=== PATIENT | female | born 1945 | race African-American/Black ===

== ENCOUNTER 2018-06-06 08:58 | Outpatient (CLI) | payer MEDICARE ==
--- NOTE | 2018-06-06 12:30 | Ultrasound Report ---
ULTRASOUND PELVIC COMPLETE HISTORY: Pelvic pain, left lower quadrant pain. COMPARISON: None. TECHNIQUE: Transabdominal and transvaginal ultrasound with color doppler interrogation. FINDINGS: Uterus: Anteverted. 4.3 x 1.7 x 3.3 cm. No uterine mass. Endometrium: 4 mm. Right ovary: 1.4 x 1.2 x 1.2 cm. No focal abnormality. Left ovary: 3.6 x 3.1 x 3.6 cm. A 3.0 x 2.6 x 2.8 cm simple cyst is noted in the left adnexa. No pelvic fluid or mass is identified. Normal color doppler interrogation. IMPRESSION: Left ovarian cyst.
== END 2018-06-06 08:59 | disposition home or self-care (01) ==
LOC: US 08:58
PROVIDERS: ATTEND Obstetrics & Gynecology
DX: N83.202 Unspecified ovarian cyst, left side (principal)
CPT/HCPCS: 76856

== ENCOUNTER 2018-08-22 09:11 | Outpatient (CLI) | payer MEDICARE ==
--- NOTE | 2018-08-22 11:34 | Ultrasound Report ---
TRANSABDOMINAL PELVIC AND TRANSVAGINAL ULTRASOUND HISTORY: Follow-up left ovarian cyst. Postmenopausal.. COMPARISON: 06/06/2018 TECHNIQUE: Routine transabdominal and transvaginal pelvic ultrasound performed. FINDINGS: TRANSABDOMINAL PELVIC ULTRASOUND: Uterus: Normal size and echogenicity without uterine mass. Endometrium: 5 mm in thickness. Right Ovary: Not seen. Left Ovary: A single relatively anechoic smooth cyst. The ovary measures 3.5 x 3.0 x 3.4 cm and the c yst measures 2.6 x 2.4 x 2.8 cm. Additional findings: Transvaginal exam was performed for better delineation of the endometrium and ov crystal. TRANSVAGINAL PELVIC ULTRASOUND: Uterus: Normal size and echogenicity. No masses. Uterus measures 5.0 x 2.1 x 4.3 cm. Endometrium: Normal thickness measuring 2.0 mm. Right Ovary: Not seen Left Ovary: The left ovary contains a relatively anechoic smooth cyst. The ovary measures 3.8 x 2.7 x 3.4 cm and the cyst measures 3.3 x 2.3 x 3.0 cm. Additional findings: No free fluid. IMPRESSION 1. A slightly larger 3.3 cm left ovarian cyst. However, it has benign sonographic features. 2. Normal uterus and endometrium. 3. No right ovary identified. Signer Name: Edy Wright MD Signed: 08/22/2018 11:29 AM Workstation Name: [id number]
== END 2018-08-22 09:12 | disposition home or self-care (01) ==
LOC: US 09:11
PROVIDERS: ATTEND Obstetrics & Gynecology Gynecologic Oncology
DX: N83.202 Unspecified ovarian cyst, left side (principal)
CPT/HCPCS: 76830; 76856

== ENCOUNTER 2019-09-01 23:00 | Emergency (ER) | payer MEDICARE ==
[2019-09-02 00:21] VITALS: BP 154/85
[2019-09-02] MEDS ORDERED: BUTALB/ACETAMINOPHEN/CAFFEINE TAB PO ONE (01:53)
--- NOTE | 2019-09-02 01:55 | Emergency Department Report ---
HPI - General Chief Complaint: Headache Time Seen by Provider: 09/02/19 01:33 - [facility] HPI: Room 33 The patient is a 73-year-old female present with a chief complaint of headache. Patient states this evening around 20: 00 she developed headache in the frontal region and calvarium. Patient states she knows her blood pressure was elevated with a systolic of 170. Patient denies any preceding trauma or fever. Patient denies nausea or vomiting. Patient gives her headache a score of 6/10 ED Past Medical Hx - Past Medical History Previous Medical History?: Yes Hx Hypertension: Yes - Surgical History Past Surgical History?: No - Family History Family history: no significant - Social History Smoking Status: Never Smoker Substance Use Type: None - Medications Home Medications: Home Medications Medication Instructions Recorded Confirmed Last Taken Type Butalb/Acetamin/Caff 50-325-40 1 - 2 tab PO Q6HR PRN #10 tab 09/02/19 Unknown Rx [Fioricet 50-325-40] ED Review of Systems ROS: Stated complaint: HIGH BLOOD PRESSURE Other details as noted in HPI Constitutional: no symptoms reported Respiratory: no symptoms reported Endocrine: no symptoms reported Gastrointestinal: denies: nausea, vomiting Neurological: headache Physical Exam - Physical Exam Vital Signs: Vital Signs 09/02/19 00:18 Temperature 98.1 F Pulse Rate 82 Respiratory 18 Rate Blood Pressure 154/85 O2 Sat by Pulse 99 Oximetry Physical Exam: GENERAL: The patient is well-developed well-nourished female sitting in chair not appearing to be in acute distress HEENT: Normocephalic. Atraumatic. Extraocular motions are intact. Patient has moist mucous membranes. NECK: Supple. No meningitic signs are noted. Trachea midline CHEST/LUNGS: Clear to auscultation. There is no respiratory distress noted. HEART/CARDIOVASCULAR: Regular. There is no tachycardia. There is no gallop rub or murmur. ABDOMEN: Abdomen is soft, nontender. Patient has normal bowel sounds. There is no abdominal distention. SKIN: There is no rash. There is no edema. There is no diaphoresis. NEURO: The patient is awake, alert, and oriented. The patient is cooperative. The patient has no focal neurologic deficits. The patient has normal speech. Cranial nerves II through XII grossly intact MUSCULOSKELETAL: There is no evidence of acute injury. ED Course Vital Signs 07/19/20 00:18 Temperature 98.1 F Pulse Rate 82 Respiratory 18 Rate Blood Pressure 154/85 O2 Sat by Pulse 99 Oximetry ED Medical Decision Making - Radiology Data Radiology results: report reviewed (CT head), image reviewed (CT head) Findings [facility] [address] [place] [address] Cat Scan Report Signed Patient: CLARISSE RENE MR#: [id number] 7 : 1945 Acct:[id number] Age/Sex: 73 / F ADM Date: 09/01/19 Loc: ED Attending Dr: Ordering Physician: PATRICIA BASURTO MD Date of Service: 09/02/19 Procedure(s): CT head/brain wo con Accession Number(s): [id number] cc: PATRICIA BASURTO MD CT head without contrast INDICATION : Headache TECHNIQUE: Axial imaging performed from the skull apex through the skull base without the use of contrast. All CT examinations performed at this facility utilize dose modulation, iterative reconstruction or weight-based dosing, when appropriate, to reduce radiation dose to as low as reasonably achievable. COMPARISON: None FINDINGS: No acute intracranial hemorrhage or parenchymal abnormality. Ventricles are normal in size and appear symmetric. Soft tissues including the orbits appear normal. No acute osseous a bnormality. Sinuses and mastoid air cells are clear. IMPRESSION: No acute abnormality. Signer Name: Pablo Sutton MD Signed: 09/02/2019 2:13 AM Workstation Name: [id number] Transcribed By: BC Dictated By: Pablo Sutton MD Electronically Authenticated By: Pablo Sutton MD Signed Date/Time: 09/02/19212 DD/ 1 TD/TT: - Differential Diagnosis Headache, intracranial mass, ICH Critical care attestation.: If time is entered above; I have spent that time in minutes in the direct care of this critically ill patient, excluding procedure time. ED Disposition Clinical Impression: Headache Disposition: DC-01 TO HOME OR SELFCARE Is pt being admited?: No Does the pt Need Aspirin: No Condition: Stable Instructions: Acute Headache (ED) Additional Instructions: Return to the emergency department should you develop worsening symptoms, inability to tolerate food or liquids, high fever or any other concerns Prescriptions: Butalb/Acetamin/Caff 50-325-40 [Fioricet 50-325-40] 1 - 2 tab PO Q6HR PRN #10 tab PRN Reason: Headache Referrals: PRIMARY CAREMD [Primary Care Provider] - 3-5 Days EARLE MAI MD [Staff Physician] - 3-5 Days (Dr. Mai is a neurologist. Please follow-up with him for further evaluation) Time of Disposition: 02:52
--- NOTE | 2019-09-02 02:18 | Cat Scan Report ---
CT head without contrast INDICATION : Headache TECHNIQUE: Axial imaging performed from the skull apex through the skull base without the use of con trast. All CT examinations performed at this facility utilize dose modulation, iterative reconstruct ion or weight-based dosing, when appropriate, to reduce radiation dose to as low as reasonably achiev able. COMPARISON: None FINDINGS: No acute intracranial hemorrhage or parenchymal abnormality. Ventricles are normal in si ze and appear symmetric. Soft tissues including the orbits appear normal. No acute osseous abnorm ality. Sinuses and mastoid air cells are clear. IMPRESSION: No acute abnormality. Signer Name: Pablo Sutton MD Signed: 09/02/2019 2:13 AM Workstation Name: [id number]
== END 2019-09-02 03:03 | disposition home or self-care (01) ==
LOC: ED 23:00
DX: I10 Essential (primary) hypertension (principal)
CPT/HCPCS: 70450; 99283

== ENCOUNTER 2019-10-09 01:46 | Emergency (ER) | payer MEDICARE ==
[2019-10-09 06:50] LABS: Bilirubin,Urine NEG (Negative); Blood,Urine NEG (Negative); Color,Urine Colorless (Yellow); Protein,Urine <15 mg/dL mg/dL (Negative); Urobilinogen,Urine < 2.0 mg/dL (<2.0)
--- NOTE | 2019-10-09 06:55 | XRay Report ---
CHEST 2 VIEWS, 10/09/2019 6:33 AM INDICATION: Hypertension. Weakness. COMPARISON: Chest radiograph, 07/31/2012 FINDINGS: Support devices: None. Heart: The cardiac silhouette is normal in size. Thoracic aorta appears tortuous. Lungs/pleura: The lungs are clear of focal airspace disease or significant pleural effusion. Additional findings: No significant acute abnormality. IMPRESSION: 1. No evidence of acute cardiopulmonary process. Signer Name: Zoey Pruitt MD Signed: 10/09/2019 6:50 AM Workstation Name: [id number]
[2019-10-09 07:05] LABS: Basophils # (Auto) 0.1 K/mm3 (0.0-0.1); Basophils % (Auto) 1.2 % (0.0-1.8); Eosinophils # (Auto) 0.1 K/mm3 (0.0-0.4); Eosinophils % (Auto) 1.1 % (0.0-4.3); Hematocrit 35.7 % (30.3-42.9); Hemoglobin 12.5 gm/dl (10.1-14.3); Lymphocytes # (Auto) 1.8 K/mm3 (1.2-5.4); Lymphocytes % (Auto) 37.1 % (13.4-35.0); Mean Corpuscular HGB Conc 35 % (30-34); Mean Corpuscular Volume 97 fl (79-97); Monocytes # (Auto) 0.4 K/mm3 (0.0-0.8); Monocytes % (Auto) 8.3 % (0.0-7.3); Platelet Count 287 K/mm3 (140-440); Red Cell Distribution Width 12.2 % (13.2-15.2)
--- NOTE | 2019-10-09 07:13 | Emergency Department Report ---
Blank Doc - Documentation Documentation: 74-year-old female with primary history of hypertension presents emergency dep artment complaining of hypertension chest pain shortness of breath and weakness for an unknown amount of days. Plan is to evaluate patient with an EKG chest x-ray and cardiac labs is a blood pressure is in relatively normal range.
[2019-10-09 07:26] LABS: Alanine Aminotransferase 18 units/L (7-56); Albumin 4.9 g/dL (3.9-5); Blood Urea Nitrogen 11 mg/dL (7-17); Calcium 10.3 mg/dL (8.4-10.2); Hemolysis Index 7
[2019-10-09 07:39] LABS: BUN/Creatinine Ratio 16
--- NOTE | 2019-10-09 08:13 | Emergency Department Report ---
ED General Adult HPI - General Chief complaint: Weakness Stated complaint: HBP/WEAKNESS Time Seen by Provider: 10/09/19 07:36 Source: patient, family Mode of arrival: Ambulatory Limitations: Language Barrier - History of Present Illness Initial comments: This is a 74-year-old female who takes hydroxychloroquine for lupus. I have obtained a history from a [place] disability insurance claim examiner. Patient presents with a log sheet of her blood pressure. She took her blood pressure some 5 times last night. She decided her blood pressure was high. However all the documented readings are reasonably within normal range. Apparently she became anxious and had some difficulty in breathing which did not persist for more than seconds to minutes. She presented here with her for medical evaluation today. She has had no chest pain whatsoever despite the medical screening note to the contrary. She is not symptomatic at this time. She is fully ambulatory about the emergency department without any distress whatsoever. -: Gradual Associated Symptoms: denies other symptoms - Related Data Previous Rx's Medication Instructions Recorded Last Taken Type Butalb/Acetamin/Caff 50-325-40 1 - 2 tab PO Q6HR PRN #10 tab 09/02/19 Unknown Rx [Fioricet 50-325-40] Nitrofurantoin Kings/M-Cryst 100 mg PO Q12HR #14 capsule 10/09/19 Unknown Rx [Macrobid CAP] Allergies Allergy/AdvReac Type Severity Reaction Status Date / Time No Known Allergies Allergy Unverified 08/22/18 09:12 ED Review of Systems ROS: Stated complaint: HBP/WEAKNESS Other details as noted in HPI Constitutional: denies: chills, fever Eyes: denies: eye pain, eye discharge, vision change ENT: denies: ear pain, throat pain Respiratory: shortness of breath. denies: cough, wheezing Cardiovascular: denies: chest pain, palpitations Endocrine: no symptoms reported Gastrointestinal: denies: abdominal pain, nausea, diarrhea Genitourinary: denies: urgency, dysuria, discharge Musculoskeletal: denies: back pain, joint swelling, arthralgia Skin: denies: rash, lesions Neurological: denies: headache, weakness, paresthesias Psychiatric: anxiety. denies: depression Hematological/Lymphatic: denies: easy bleeding, easy bruising ED Past Medical Hx - Past Medical History Previous Medical History?: Yes Hx Hypertension: Yes Additional medical history: Lupus - Social History Smoking Status: Never Smoker - Medications Home Medications: Home Medications Medication Instructions Recorded Confirmed Last Taken Type Butalb/Acetamin/Caff 50-325-40 1 - 2 tab PO Q6HR PRN #10 tab 09/02/19 Unknown Rx [Fioricet 50-325-40] Nitrofurantoin Kings/M-Cryst 100 mg PO Q12HR #14 capsule 10/09/19 Unknown Rx [Macrobid CAP] ED Physical Exam - General Limitations: Language Barrier General appearance: alert, in no apparent distress - Head Head exam: Present: atraumatic, normocephalic - Eye Eye exam: Present: normal appearance. Absent: scleral icterus - ENT ENT exam: Present: mucous membranes moist - Neck Neck exam: Present: normal inspection - Respiratory Respiratory exam: Present: normal lung sounds bilaterally. Absent: respiratory distress - Cardiovascular Cardiovascular Exam: Present: regular rate, normal rhythm. Absent: systolic murmur, diastolic murmur, rubs, gallop - GI/Abdominal GI/Abdominal exam: Present: soft, normal bowel sounds. Absent: distended, tenderness, guarding - Extremities Exam Extremities exam: Present: normal inspection. Absent: pedal edema, joint swelling, calf tenderness - Back Exam Back exam: Present: normal inspection - Neurological Exam Neurological exam: Present: alert, oriented X3, CN II-XII intact, normal gait. Absent: motor sensory deficit - Psychiatric Psychiatric exam: Present: normal affect, normal mood - Skin Skin exam: Present: warm, dry, intact, normal color. Absent: rash ED Course Vital Signs 10/09/19 03:46 Temperature 97.7 F Pulse Rate 84 Respiratory 16 Rate Blood Pressure 144/88 O2 Sat by Pulse 99 Oximetry ED Medical Decision Making - Lab Data Result diagrams: 10/09/19 06:34 10/09/19 06:34 Laboratory Results - last 24 hr 10/09/19 10/09/19 10/09/19 06:19 06:34 06:34 WBC 4.9 RBC 3.70 Hgb 12.5 Hct 35.7 MCV 97 MCH 34 H MCHC 35 H RDW 12.2 L Plt Count 287 Lymph % (Auto) 37.1 H Kings % (Auto) 8.3 H Eos % (Auto) 1.1 Baso % (Auto) 1.2 Lymph # 1.8 Kings # 0.4 Eos # 0.1 Baso # 0.1 Seg Neutrophils % 52.3 Seg Neutrophils # 2.6 Sodium 136 L Potassium 5.0 Chloride 98.7 Carbon Dioxide 25 Anion Gap 17 BUN 11 Creatinine 0.7 Estimated GFR > 60 BUN/Creatinine Ratio 16 Glucose 109 H Calcium 10.3 H Total Bilirubin 0.50 AST 24 ALT 18 Alkaline Phosphatase 113 Troponin T Total Protein 7.5 Albumin 4.9 Albumin/Globulin Ratio 1.9 Lipase 69 H Urine Color Colorless Urine Turbidity Clear Urine pH 7.0 Ur Specific [place] 1.004 Urine Protein <15 mg/dl Urine Glucose (UA) Neg Urine Ketones Neg Urine Blood Neg Urine Nitrite Neg Urine Bilirubin Neg Urine Urobilinogen < 2.0 Ur Leukocyte Esterase Lg Urine WBC (Auto) 5.0 Urine RBC (Auto) 1.0 U Epithel Cells (Auto) < 1.0 10/09/19 07:26 WBC RBC Hgb Hct MCV MCH MCHC RDW Plt Count Lymph % (Auto) Kings % (Auto) Eos % (Auto) Baso % (Auto) Lymph # Kings # Eos # Baso # Seg Neutrophils % Seg Neutrophils # Sodium Potassium Chloride Carbon Dioxide Anion Gap BUN Creatinine Estimated GFR BUN/Creatinine Ratio Glucose Calcium Total Bilirubin AST ALT Alkaline Phosphatase Troponin T < 0.010 Total Protein Albumin Albumin/Globulin Ratio Lipase Urine Color Urine Turbidity Urine pH Ur Specific [place] Urine Protein Urine Glucose (UA) Urine Ketones Urine Blood Urine Nitrite Urine Bilirubin Urine Urobilinogen Ur Leukocyte Esterase Urine WBC (Auto) Urine RBC (Auto) U Epithel Cells (Auto) - EKG Data -: EKG Interpreted by [place] EKG shows normal: sinus rhythm, axis, intervals, QRS complexes, ST-T waves Rate: normal - EKG Data Interpretation: no acute changes - Medical Decision Making Patient's medical screening does not suggest an emergency medical condition. The urine does suggest a UTI. She will be given a prescription for Macrobid and follow-up instructions on a urine culture. Critical care attestation.: If time is entered above; I have spent that time in minutes in the direct care of this critically ill patient, excluding procedure time. ED Disposition Clinical Impression: Anxiety Dyspnea Qualifiers: Dyspnea type: unspecified Qualified Code(s): R06.00 - Dyspnea, unspecified UTI (urinary tract infection) Qualifiers: Urinary tract infection type: site unspecified Hematuria presence: with hematuria Qualified Code(s): N39.0 - Urinary tract infection, site not specified; R31.9 - Hematuria, unspecified Disposition: DC-01 TO HOME OR SELFCARE Is pt being admited?: No Does the pt Need Aspirin: No Condition: Stable Instructions: Dyspnea (ED), Anxiety (ED), Urinary Tract Infection in Women (ED) Additional Instructions: Follow-up with your family physician. Rx as directed. Return any acute change or worsening symptoms. Prescriptions: Nitrofurantoin Kings/M-Cryst [Macrobid CAP] 100 mg PO Q12HR #14 capsule Referrals: PRIMARY CARE, [Primary Care Provider] - 3-5 Days Time of Disposition: 08:12
[2019-10-09 08:44] VITALS: BP 136/81
== END 2019-10-09 08:43 | disposition home or self-care (01) ==
LOC: ED 01:46
DX: F41.9 Anxiety disorder, unspecified (principal); R06.00 Dyspnea, unspecified; N39.0 Urinary tract infection, site not specified; Z79.899 Other long term (current) drug therapy
CPT/HCPCS: 36415; 71046; 80053; 81001; 83690; 84484; 85025; 87086; 93005

== ENCOUNTER 2019-11-23 20:39 | Emergency (ER) | payer MEDICARE ==
[2019-11-23] MEDS ORDERED: IBUPROFEN 400 MG TAB PO ONE (21:54)
[2019-11-23] MEDS ORDERED: MORPHINE 2 MG/1 ML INJ IV ONE (21:54)
[2019-11-23] MEDS ORDERED: ONDANSETRON 4 MG/2 ML INJ IV ONE (21:54)
--- NOTE | 2019-11-23 21:58 | XRay Report ---
LEFT FOREARM 4 VIEW(S) INDICATION / CLINICAL INFORMATION: left forearm injury COMPARISON: None available. FINDINGS: There are comminuted, mildly displaced fractures of the distal radius and ulna. There is dorsal angul ation of the distal radius fracture and ulnar angulation of the distal ulnar fracture. The carpals ma intain normal anatomic alignment with the distal radius without dislocation. Signer Name: Napoleon Norman MD Signed: 11/23/2019 9:53 PM Workstation Name: [id number]
[2019-11-23] MEDS ORDERED: LIDOCAINE (1%) 10 MG/1 ML VIAL 20 ML MDV INFILTRATI ONE (21:59)
--- NOTE | 2019-11-23 22:59 | Cat Scan Report ---
CT HEAD WITHOUT CONTRAST INDICATION / CLINICAL INFORMATION: head injury. TECHNIQUE: All CT scans at this location are performed using CT dose reduction for ALARA by means of automated e xposure control. COMPARISON: Head CT 09/02/2019 FINDINGS: HEMORRHAGE: No evidence of intracranial hemorrhage or extra-axial fluid collection. EXTRA-AXIAL SPACES: Cortical sulci, sylvian fissures and basilar cisterns have an unremarkable appear ance. VENTRICULAR SYSTEM: The ventricular system is of normal size and configuration given the patient's ag e of 74 years.. CEREBRAL PARENCHYMA: No areas of abnormal brain parenchymal attenuation are identified. There is no i ndication of recent infarction. MIDLINE SHIFT OR HERNIATION: There is no mass effect. CEREBELLUM / BRAINSTEM: Brainstem and cerebellum have an unremarkable appearance. MIDLINE STRUCTURES:No abnormalities of the pituitary gland or pineal region are identified. INTRACRANIAL VESSELS:No abnormalities are identified on this noncontrast head CT. ORBITS: Status post bilateral cataract surgery. The orbits have an otherwise unremarkable appearance. SOFT TISSUES of HEAD: No significant abnormality. CALVARIUM: Evaluation of bone windows reveals no abnormalities. PARANASAL SINUSES / MASTOID AIR CELLS: Paranasal sinuses are free from inflammatory mucosal disease. Mastoid air cells are normally pneumatized. ADDITIONAL FINDINGS: None. IMPRESSION: 1. No acute intracranial abnormality. No significant interval change in comparison to head CT 09/02/19 20. Signer Name: Martell Coleman MD Signed: 11/23/2019 10:54 PM Workstation Name: [id number]
--- NOTE | 2019-11-23 23:06 | Cat Scan Report ---
CT CERVICAL SPINE WITHOUT CONTRAST INDICATION / CLINICAL INFORMATION: Trauma. Patient fell sustaining neck injury. Neck pain. TECHNIQUE: Axial CT images were obtained through the cervical spine. Sagittal and coronal reformatted images wer e produced. All CT scans at this location are performed using CT dose reduction for ALARA by means of automated exposure control. COMPARISON: None available. FINDINGS: ALIGNMENT: Patient's head is tilted towards the left at the time of this study. There is no additiona l abnormalities of alignment. There is no evidence of traumatic subluxation. VERTEBRAE: No indication of fracture. DISC SPACES: Loss of disc height is observed at the C5-6 level. Disc height is normally maintained el sewhere. DEGENERATIVE CHANGES: Right worse than left facet arthropathy is present at the C5-6 level. Right wor se than left uncovertebral arthritic changes are also observed at this level. This is associated with moderate right-sided foraminal stenosis. Central spinal canal and neuroforamina are otherwise adequa tely maintained. CRANIOCERVICAL JUNCTION:No significant abnormality. SPINAL CANAL: Central spinal canal is adequately maintained throughout. PARASPINAL SOFT TISSUES: No significant abnormality. ADDITIONAL FINDINGS: None. LUNG APICES: No significant abnormality of visualized lungs. IMPRESSION: 1. No indication of fracture or traumatic subluxation. 2. 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 Signer Name: Martell Coleman MD Signed: 11/23/2019 11:01 PM Workstation Name: [id number]
--- NOTE | 2019-11-24 00:05 | Emergency Department Report ---
ED Fall HPI - General Chief Complaint: Fall Stated Complaint: LT WRIST INJURY/FALL Source: patient, family Mode of arrival: Ambulatory - History of Present Illness Initial Comments: Per family, patient is a 74-year-old [place]ian female with a history of hypertension, GERD and SLE who presents to the ED with complaint of acute onset severe left wrist pain and swelling with deformity, left elbow and left forearm pain, as well as left parietal scalp pain with headache after she slipped on a wet bathtub and fell down landing on her left wrist and hitting her head against the bathtub about 2 hours ago. Family states that the patient did not lose any consciousness but has been complaining of severe left wrist, left forearm and left elbow pain as well as headache since the incident occurred. Family states that the patient is unable to perform any active range of motion with the left arm because of worsening left wrist pain and swelling. Family also states that the patient has not had any loss of consciousness, dizziness, lightheadedness, chest pain, shortness of breath, nausea, vomiting, change in vision, back pain, hip pain, abdominal pain, or numbness and tingling or weakness of upper and lower extremities bilaterally. MD Complaint: fall, other (left wrist pain, swelling and deformity; headache) -: Sudden, hour(s) (2) Fall From: standing, other (in the bathtub) When Fall Occurred: 1-3 hours [employer] Fall Witnessed: yes, by family Place Fall Occurred: home Loss of Consciousness: none Prolonged Down Time?: no Symptoms Prior to Fall: none Location: head, other (left wrist and elbow ) Location - Extremities: Left: Elbow (pain), Forearm (pain), Hand (pain and swelling) Severity: severe Severity scale (0 -10): 8 Quality: sharp, aching Context: tripped/slipped Associated Symptoms: denies, neck pain. denies: headache, numbness, weakness, chest paint, shortness of breath, abdominal pain, hematuria, unable to walk, lightheaded, vertigo, confusion, other - Related Data Previous Rx's Medication Instructions Recorded Last Taken Type Butalb/Acetamin/Caff 50-325-40 1 - 2 tab PO Q6HR PRN #10 tab 09/02/19 Unknown Rx [Fioricet 50-325-40] Nitrofurantoin Nome/M-Cryst 100 mg PO Q12HR #14 capsule 08/25/20 Unknown Rx [Macrobid CAP] HYDROcodone/APAP 5-325 [Dulce 1 each PO Q6HR PRN #12 tablet 11/24/19 Unknown Rx 5/325] Ibuprofen [Motrin] 400 mg PO Q8H PRN #30 tablet 11/24/19 Unknown Rx Allergies Allergy/AdvReac Type Severity Reaction Status Date / Time No Known Allergies Allergy Unverified 08/22/18 09:12 ED Review of Systems ROS: Stated complaint: LT WRIST INJURY/FALL Other details as noted in HPI Constitutional: denies: chills, fever Eyes: denies: eye pain, eye discharge, vision change ENT: denies: ear pain, throat pain Respiratory: denies: cough, shortness of breath, wheezing Cardiovascular: denies: chest pain, palpitations Endocrine: no symptoms reported Gastrointestinal: denies: abdominal pain, nausea, diarrhea Genitourinary: denies: urgency, dysuria, discharge Musculoskeletal: joint swelling (Left wrist swelling and deformity), arthralgia (Left wrist pain, swelling and deformity; left forearm and elbow pain). denies: back pain Skin: denies: rash, lesions Neurological: headache. denies: weakness, paresthesias Psychiatric: denies: anxiety, depression Hematological/Lymphatic: denies: easy bleeding, easy bruising ED Past Medical Hx - Past Medical History Previous Medical History?: Yes Hx Hypertension: Yes Hx GERD: Yes Additional medical history: Lupus - Surgical History Past Surgical History?: Yes Additional Surgical History: Ovaries removed - Social History Smoking Status: Never Smoker Substance Use Type: None - Medications Home Medications: Home Medications Medication Instructions Recorded Confirmed Last Taken Type Butalb/Acetamin/Caff 50-325-40 1 - 2 tab PO Q6HR PRN #10 tab 09/02/19 Unknown Rx [Fioricet 50-325-40] Nitrofurantoin Nome/M-Cryst 100 mg PO Q12HR #14 capsule 10/09/19 Unknown Rx [Macrobid CAP] HYDROcodone/APAP 5-325 [Dulce 1 each PO Q6HR PRN #12 tablet 11/24/19 Unknown Rx 5/325] Ibuprofen [Motrin] 400 mg PO Q8H PRN #30 tablet 11/24/19 Unknown Rx ED Physical Exam - General Limitations: Language Barrier General appearance: alert, in no apparent distress - Head Head exam: Present: other (Palpable left parietal scalp localized tenderness with mild swelling) - Eye Eye exam: Present: normal appearance, PERRL, EOMI Pupils: Present: normal accommodation - ENT ENT exam: Present: normal exam, normal orophraynx, mucous membranes moist, TM's normal bilaterally, normal external ear exam - Neck Neck exam: Present: normal inspection, tenderness (Palpable mild cervical paraspinal musculoskeletal tenderness), full ROM. Absent: meningismus, thyr omegaly - Respiratory Respiratory exam: Present: normal lung sounds bilaterally. Absent: respiratory distress, wheezes, rales, stridor, chest wall tenderness, accessory muscle use, decreased breath sounds, prolonged expiratory - Cardiovascular Cardiovascular Exam: Present: regular rate, normal rhythm. Absent: normal heart sounds, systolic murmur, diastolic murmur, rubs, gallop - GI/Abdominal GI/Abdominal exam: Present: soft, normal bowel sounds. Absent: distended, tenderness, guarding, hyperactive bowel sounds, hypoactive bowel sounds, organomegaly, mass - Extremities Exam Extremities exam: Present: normal inspection, tenderness (Palpable severe left wrist tenderness with swelling and moderate deformity and limited range of motion due to pain), normal capillary refill, joint swelling (Left wrist swelling), other (Palpable diffuse left forearm and elbow tenderness). Absent: full ROM (Limited range of motion of left wrist due to severe pain) - Back Exam Back exam: Present: normal inspection, full ROM. Absent: tenderness, CVA tenderness (R), CVA tenderness (L), muscle spasm, paraspinal tenderness, vertebral tenderness - Neurological Exam Neurological exam: Present: alert, oriented X3, CN II-XII intact, normal gait, reflexes normal - Psychiatric Psychiatric exam: Present: normal affect, normal mood - Skin Skin exam: Present: warm, dry, intact, normal color. Absent: rash ED Course Vital Signs 11/23/19 11/24/19 20:50 01:06 Temperature 98.5 F 98.3 F Pulse Rate 89 76 Respiratory 18 18 Rate Blood Pressure 140/82 Blood Pressure 125/77 [Right] O2 Sat by Pulse 99 98 Oximetry - Orthopedic Fracture Reduction Fracture #1 Consent Obtained: verbal consent, emergent situation Time Out Performed: Yes Side: left Fracture Reduction Location: radius, ulna Analgesia: hematoma block Technique: direct manipulation, traction/counter-traction Post Reduction X-rays Demonstrate: acceptable reduction Post-Reduction Neuro Exam: intact Post-Reduction Vascular Exam: intact Splint Applied: Yes (sugartong splint) Patient Tolerated Procedure: well Additional Comments: Patient referred to the Orthopedic Surgeon station installation supervisor Dr. Timoteo Bahena for follow up in 2 days. Family at bedside to contact Dr. Mahmood's office to schedule a follow up appointment ED Medical Decision Making - Radiology Data Radiology results: report reviewed, image reviewed Findings [facility] [address] [place] [address] XRay Report Signed Patient: CLARISSE RENE MR#: [id number] 7 : 1945 Acct:[id number] Age/Sex: 74 / F ADM Date: 11/23/19 Loc: ED Attending Dr: Ordering Physician: CHARLEY LOCKWOOD MD Date of Service: 11/23/19 Procedure(s): XR forearm LT Accession Number(s): [id number] cc: CHARLEY LOCKWOOD MD Fluoro Time In Minutes: LEFT FOREARM 4 VIEW(S) INDICATION / CLINICAL INFORMATION: left forearm injury COMPARISON: None available. FINDINGS: There are comminuted, mildly displaced fractures of the distal radius and ulna. There is dorsal angulation of the distal radius fracture and ulnar angulation of the distal ulnar fracture. The carpals maintain normal anatomic alignment with the distal radius without dislocation. Signer Name: Jody Vega MD Signed: 11/23/2019 9:53 PM Workstation Name: [id number] Transcribed By: SS Dictated By: JODY VEGA Electronically Authenticated By: JODY VEGA Signed Date/Time: 11/23/192152 DD/ 48 TD/TT: Findings [facility] [address] [place] [address] Cat Scan Report Signed Patient: CLARISSE RENE MR#: [id number] 7 : 1945 Acct:[id number] Age/Sex: 74 / F ADM Date: 11/23/19 Loc: ED Attending Dr: Ordering Physician: FIDE SORENSEN Date of Service: 11/23/19 Procedure(s): CT head/brain wo con Accession Number(s): [id number] cc: FIDE SORENSEN CT HEAD WITHOUT CONTRAST INDICATION / CLINICAL INFORMATION: head injury. TECHNIQUE: All CT scans at this location are performed using CT dose reduction for ALARA by means of automated exposure control. COMPARISON: Head CT 09/02/2019 FINDINGS: HEMORRHAGE: No evidence of intracranial hemorrhage or extra-axial fluid collection. EXTRA-AXIAL SPACES: Cortical sulci, sylvian fissures and basilar cisterns have an unremarkable appearance. VENTRICULAR SYSTEM: The ventricular system is of normal size and configuration given the patient's age of 74 years.. CEREBRAL PARENCHYMA: No areas of abnormal brain parenchymal attenuation are identified. There is no indication of recent infarction. MIDLINE SHIFT OR HERNIATION: There is no mass effect. CEREBELLUM / BRAINSTEM: Brainstem and cerebellum have an unremarkable appearance. MIDLINE STRUCTURES:No abnormalities of the pituitary gland or pineal region are identified. INTRACRANIAL VESSELS:No abnormalities are identified on this noncontrast head CT. ORBITS: Status post bilateral cataract surgery. The orbits have an otherwise unremarkable appearance. SOFT TISSUES of HEAD: No significant abnormality. CALVARIUM: Evaluation of bone windows reveals no abnormalities. PARANASAL SINUSES / MASTOID AIR CELLS: Paranasal sinuses are free from inflammatory mucosal disease. Mastoid air cells are normally pneumatized. ADDITIONAL FINDINGS: None. IMPRESSION: 1. No acute intracranial abnormality. No significant interval change in comparison to head CT 09/02/2019. Signer Name: Martell Coleman MD Signed: 11/23/2019 10:54 PM Workstation Name: [id number] Transcribed By: Dictated By: Martell Coleman MD Electronically Authenticated By: Martell Coleman MD Signed Date/Time: 11/23/192253 DD/ 50 TD/TT: Findings [facility] [address] [place] [address] Cat Scan Report Signed Patient: CLARISSE RENE MR#: [id number] 7 : 1945 Acct:[id number] Age/Sex: 74 / F ADM Date: 11/23/19 Loc: ED Attending Dr: Ordering Physician: FIDE SORENSEN Date of Service: 11/23/19 Procedure(s): CT cervical spine wo con Accession Number(s): [id number] cc: FIDE SORENSEN CT CERVICAL SPINE WITHOUT CONTRAST INDICATION / CLINICAL INFORMATION: Trauma. Patient fell sustaining neck injury. Neck pain. TECHNIQUE: Axial CT images were obtained through the cervical spine. Sagittal and coronal reformatted images were produced. All CT scans at this location are performed using CT dose reduction for ALARA by means of automated exposure control. COMPARISON: None available. FINDINGS: ALIGNMENT: Patient's head is tilted towards the left at the time of this study. There is no additional abnormalities of alignment. There is no evidence of traumatic subluxation. VERTEBRAE: No indication of fracture. DISC SPACES: Loss of disc height is observed at the C5-6 level. Disc height is normally maintained elsewhere. DEGENERATIVE CHANGES: Right worse than left facet arthropathy is present at the C5-6 level. Right worse than left uncovertebral arthritic changes are also observed at this level. This is associated with moderate right-sided foraminal stenosis. Central spinal canal and neuroforamina are otherwise adequately maintained. CRANIOCERVICAL JUNCTION:No significant abnormality. SPINAL CANAL: Central spinal canal is adequately maintained throughout. PARASPINAL SOFT TISSUES: No significant abnormality. ADDITIONAL FINDINGS: None. LUNG APICES: No significant abnormality of visualized lungs. IMPRESSION: 1. No indication of fracture or traumatic subluxation. 2. 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 Signer Name: Martell Coleman MD Signed: 11/23/2019 11:01 PM Workstation Name: [id number] Transcribed By: Dictated By: Martell Coleman MD Electronically Authenticated By: Martell Coleman MD Signed Date/Time: 11/23/192300 DD/ 53 TD/TT: Findings [facility] [address] [place] [address] XRay Report Signed Patient: CLARISSE RENE MR#: [id number] 7 : 1945 Acct:[id number] Age/Sex: 74 / F ADM Date: 11/23/19 Loc: ED Attending Dr: Ordering Physician: FIDE SORENSEN Date of Service: 11/23/19 Procedure(s): XR wrist 2V LT Accession Number(s): [id number] cc: FIDE SORENSEN Fluoro Time In Minutes: LEFT WRIST 2 VIEWS INDICATION: Fracture: post-reduction. COMPARISON: One day prior. FINDINGS: Alignment at the distal radius and distal ulna fractures has improved. There is persistent dorsal angulation of the distal radial fracture fragment. Dorsally displaced distal ulnar fracture fragment is again noted. IMPRESSION: 1. Post reduction findings as above. Signer Name: Markus Gómez MD Signed: 11/24/2019 1:40 AM Workstation Name: [id number] Transcribed By: SW Dictated By: Markus Gómez MD Electronically Authenticated By: Markus Gómez MD Signed Date/Time: 11/24/19139 DD/ 8 TD/TT: - Medical Decision Making This is a 74-year-old [place]ian female with a history of hypertension, GERD and SLE who presents to the ED with complaint of acute onset severe left wrist pain and swelling with deformity, left elbow and left forearm pain, as well as left parietal scalp pain with headache after she slipped on a wet bathtub and fell down landing on her left wrist and hitting her head against the bathtub about 2 hours ago. Family states that the patient did not lose any consciousness but has been complaining of severe left wrist, left forearm and le ft elbow pain as well as headache since the incident occurred. Family states that the patient is unable to perform any active range of motion with the left arm because of worsening left wrist pain and swelling. In the ED, patient is alert and oriented x3 and is not in distress but appears to be in pain. Patient was treated for pain in the ED with morphine and ibuprofen. Left forearm x-ray showed comminuted, mildly displaced fractures of the distal radius and ulna. There is dorsal angulation of the distal radius fracture and ulnar angulation of the distal ulnar fracture. The carpals maintain normal anatomic alignment with the distal radius without dislocation. The head CT scan without contrast showed no acute intracranial abnormalities or hemorrhage. The C-spine CT scan without contrast showed no acute fractures or subluxation but moderate degenerative disc disease. The left wrist fracture was manually reduced in the ED following a hematoma block and the patient tolerated the procedure well. The post reduction x-ray showed a tolerable anatomical alignment of the joint. The left wrist and forearm were splinted with sugar tong splint and the post reduction and splint evaluation showed normal neurovascular functions of the left wrist and left hand. Patient was discharged home on pain medications and was given a referral to the orthopedic surgeon station installation supervisor Dr. Timoteo Bahena for follow-up. The family at bedside were advised to contact Dr. Mahmood's office first thing in the morning on Tuesday, November 26, 2019 to schedule a follow-up appointment. Family was also advised of the patient return to the ED immediately if symptoms get worse. - Differential Diagnosis Wrist fracture; forearm fracture; elbow fracture; forearm contusion; Critical care attestation.: If time is entered above; I have spent that time in minutes in the direct care of this critically ill patient, excluding procedure time. ED Disposition Clinical Impression: Contusion of left forearm, initial encounter Traumatic closed displaced fracture of distal end of radius and ulna Qualifiers: Encounter type: initial encounter Laterality: left Qualified Code(s): S52.502A - Unspecified fracture of the lower end of left radius, initial encounter for closed fracture Disposition: TO HOME OR SELFCARE Is pt being admited?: No Does the pt Need Aspirin: No Condition: Stable Instructions: Arm Fracture in Adults (ED), Wrist Fracture in Adults (ED) Additional Instructions: Left wrist x-ray shows a displaced fracture of distal left radius and ulna bones. The Head CT scan without contrast showed no acute abnormalities or intracranial bleeding. Therefore take medication as needed for pain, follow up with Dr. Timoteo Bahena, the Orthopedic Surgeon as advised. Contact Dr. Mahmood's office on Tuesday November 26, 2019 to schedule a follow up appointment. Return to the ED immediately if symptoms get worse. Prescriptions: Ibuprofen [Motrin] 400 mg PO Q8H PRN #30 tablet PRN Reason: Pain , Severe (7-10) HYDROcodone/APAP 5-325 [Dulce 5/325] 1 each PO Q6HR PRN #12 tablet PRN Reason: Pain Referrals: FLY MAHMOOD MD [Staff Physician] - 2-3 Days (CONTACT DR. MAHMOOD'S OFFICE ON Tuesday11/26/2019 TO SCHEDULE A FOLLOW UP APPOINTMENT) Time of Disposition: 00:18 Print Language: KISWAHILI
[2019-11-24] MEDS ORDERED: ACETAMINOPHEN W/CODEINE 300-30 MG TAB PO ONE (00:44)
[2019-11-24] MEDS ORDERED: ONDANSETRON 4 MG ODT TAB PO ONE (00:44)
[2019-11-24 01:07] VITALS: BP 125/77
--- NOTE | 2019-11-24 01:45 | XRay Report ---
LEFT WRIST 2 VIEWS INDICATION: Fracture: post-reduction. COMPARISON: One day prior. FINDINGS: Alignment at the distal radius and distal ulna fractures has improved. There is persistent dorsal ang ulation of the distal radial fracture fragment. Dorsally displaced distal ulnar fracture fragment is again noted. IMPRESSION: 1. Post reduction findings as above. Signer Name: Markus Gómez MD Signed: 11/24/2019 1:40 AM Workstation Name: [id number]
== END 2019-11-24 01:06 | disposition home or self-care (01) ==
LOC: ED 20:39
DX: S52.502A Unspecified fracture of the lower end of left radius, initial encounter for closed fracture (principal); S50.12XA Contusion of left forearm, initial encounter; I10 Essential (primary) hypertension; K21.9 Gastro-esophageal reflux disease without esophagitis; Z79.899 Other long term (current) drug therapy; W01.0XXA Fall on same level from slipping, tripping and stumbling without subsequent striking against object, initial encounter; Y93.89 Activity, other specified; Y92.89 Other specified places as the place of occurrence of the external cause; Y99.8 Other external cause status
CPT/HCPCS: 24620; 70450; 72125; 73090; 73100; 96374; 96375; 99284; J2270; J2405; Q0162

== ENCOUNTER 2019-12-06 09:23 | Day surgery (SDC) | payer MEDICARE ==
[~2019-12-06 09:23] MED LIST: ceFAZolin/Water 2 GM/20 ML 2 GM/20 ML SYRINGE IV NR
[2019-12-06] MEDS ORDERED: LACTATED RINGERS 1,000 ML ONE (09:51)
[2019-12-06] MEDS ORDERED: HYDROmorphone 1 MG/1 ML INJ IV PRN ×2 (10:39)
[2019-12-06] MEDS ORDERED: ONDANSETRON 4 MG/2 ML INJ IV PRN (10:39)
[2019-12-06] MEDS ORDERED: ACETAMINOPHEN 325 MG TAB PO ONE (10:45)
[2019-12-06] MEDS ORDERED: MAGNESIUM OXIDE 400 MG TAB PO ONE (10:45)
--- NOTE | 2019-12-06 10:47 | Anesthesia Day of Surgery ---
Anesthesia Day of Surgery - Day of Surgery Patient Examined: Yes Patient H&P Reviewed: Yes Patient is NPO: Yes
--- NOTE | 2019-12-06 10:47 | Anesthesia Consultation ---
Anesthesia Consult and Med Hx Date of service: 12/06/19 - Airway Anesthetic Teeth Evaluation: Good Mental/Hyoid Distance: Adequate Mallampati Class: Class III Intubation Access Assessment: Probably Good - Pre-Operative Health Status ASA Pre-Surgery Classification: ASA2 Proposed Anesthetic Plan: General - Pulmonary Hx Smoking: No Hx Asthma: No SOB: Yes (LONG TIME AGO) COPD: No Hx Pneumonia: No Hx Sleep Apnea: No (KATHARINA PRE SCREEN LOW RISK) - Cardiovascular System Hx Hypertension: Yes (MEDS PRN) Hx Heart Attack/AMI: No Hx Percutaneous Transluminal Coronary Angioplasty (PTCA): No Hx Pacemaker: No Hx Internal Defibrillator: No Hx Heart Murmur: No - Central Nervous System Hx Neuromuscular Disorder: Yes (SLE) Hx Seizures: No Hx Back Pain: No Hx Psychiatric Problems: No - Gastrointestinal Hx Gastroesophageal Reflux Disease: Yes - Endocrine Hx End Stage Renal Disease: No Hx Cirrhosis: No Hx Liver Disease: No - Hematic Hx Anemia: Yes (NOT RECENT) Hx Sickle Cell Disease: No - Other Systems Hx Alcohol Use: No Hx Substance Use: No Hx Cancer: No - Additional Comments Anesthesia Medical History Comments: Fell. Denies LOC, other injuries. Monegasque-speaking only. Son at bedside who translated.
[2019-12-06] MEDS ORDERED: LACTATED RINGERS 1,000 ML IV SCH (11:00)
[2019-12-06] MEDS ORDERED: GABAPENTIN 500 MG/10 ML ORAL LIQD PO NR (11:00)
[2019-12-06] MEDS ORDERED: MIDAZOLAM 2 MG/2 ML INJ IV NR (11:00)
[2019-12-06] MEDS ORDERED: dexAMETHasone 20 MG/5 ML VIAL ONE (11:01)
[2019-12-06] MEDS ORDERED: HYDROmorphone 1 MG/1 ML INJ ONE (11:01)
[2019-12-06] MEDS ORDERED: ONDANSETRON 4 MG/2 ML INJ ONE (11:01)
[2019-12-06] MEDS ORDERED: LIDOCAINE MPF (2%) 20 MG/1 ML VIAL 5 ML ONE (11:01)
[2019-12-06] MEDS ORDERED: propofoL 200 MG/20 ML VIAL IV ONE (11:02)
[2019-12-06] MEDS ORDERED: BUPIVACAINE/PF (0.25%) 2.5 MG/ML 10 ML VIAL INFILTRATI ONE (11:06)
[2019-12-06] MEDS ORDERED: NEOMY 3.5 MG/BACIT 400 UNITS/POLY B 5000 UNITS OINT 15 GM TP ONE (11:07)
[2019-12-06] MEDS ORDERED: BUPIVACAINE/PF (0.25%) 2.5 MG/ML 30 ML VIAL INFILTRATI ONE ×2 (11:09→13:21)
[2019-12-06] MEDS ORDERED: ePHEDrine SULFATE 50 MG/1 ML INJ ONE (12:35)
[2019-12-06] MEDS ORDERED: SODIUM CHLORIDE 0.9% IRR 1,500 ML BOTTLE IR ONE (13:22)
--- NOTE | 2019-12-06 13:29 | Procedure Note ---
Date of procedure: 12/06/19 Pre-op diagnosis: Displaced left distal radius and ulna fracture Post-op diagnosis: same Procedure: Open reduction internal fixation right distal radius and ulnar Procedure The patient was brought to the OR after being given regional anesthesia and preoperative holding, next she was placed on the OR table in supine position the patient's right upper extremity was prepped and draped in the usual sterile manner. A timeout procedure was done to identify the patient and the correct operative site. The arm was exsanguinated followed by inflation of the pneumatic tourniquet to 250 mmHg. A volar incision was made along the distal radius as is taken down sharply through skin and subcutaneous the flexor carpi radialis tendon was seen next the incision was carried deep to this structure we encountered the quadratus tendon this was then debrided from the distal radius using a periosteal elevator the fracture site was seen she was noted to have a small comminuted fragment along the volar surface after the gentle manipulation the fracture fragments were reduced into a more anatomic position next the right distal radius locking plate was applied via C-arm care was taken to insert both locking and nonlocking screws of various lengths AP and lateral views were obtained showing good reduction at the fracture. Next a secondary incision was made along the lateral border of the distal ulna this is taken down sharply through skin subcu next the periosteum was incised the bone fragments were identified and manipulated into a more reduced position following this a 7 hole 2.7 mm locked plate was applied to the distal ulna the plate was then secured with locked screws of various lengths AP and lateral views were obtained showing good reduction at both the ulnar and distal radial fracture sites. The wrist was taken through a range of motion and was found to be stable next the wound was copiously irrigated and was closed in a standard routine fashion. Dressings were applied as well as a well-padded volar splint the patient tolerated the pro cedure there were no complications and she was sent to postanesthesia recovery in a stable condition Anesthesia: LIZZETTE Surgeon: FLY HORNE Micro Lab Analyst: ADILSON MCDOWELL Estimated blood loss: minimal Pathology: none Condition: stable Disposition: PACU
--- NOTE | 2019-12-06 14:25 | XRay Report ---
XR WRIST 2V LT INDICATION / CLINICAL INFORMATION: LT RADIUS ULNA FX / ORIF. COMPARISON: 11/23/19. FINDINGS: A new ventral metallic plate and screws transfix the distal radial fracture and a new dorsal metallic plate and screws transfix the distal ulnar fracture. No complication of surgery is seen. Fluoroscopy time: 8 seconds. Fluoroscopic images: 2. Signer Name: Lamin Florez MD Signed: 12/06/2019 2:21 PM Workstation Name: [id number]
[2019-12-06 15:17] VITALS: BP 148/81
--- NOTE | 2019-12-06 16:53 | Post Anesthesia Evaluation ---
- Post Anesthesia Evaluation Patient Participated: Yes Airway Patent: Yes Stable Respiratory Function: Yes Nausea/Vomiting: No Temp > 96.8F: Yes Pain Manageable: Yes Adequeate Hydration: Yes Anesthesia Complications: No Block Receding Appropriately: Not Applicable Patient on Ventilator: No
== END 2019-12-06 15:59 | disposition home or self-care (01) ==
LOC: OR 09:23
PROVIDERS: ATTEND Orthopaedic Surgery
DX: S52.502A Unspecified fracture of the lower end of left radius, initial encounter for closed fracture (principal); S52.602A Unspecified fracture of lower end of left ulna, initial encounter for closed fracture; S52.572A Other intraarticular fracture of lower end of left radius, initial encounter for closed fracture; Z20.828 Contact with and (suspected) exposure to other viral communicable diseases; I10 Essential (primary) hypertension; K21.9 Gastro-esophageal reflux disease without esophagitis; Z79.899 Other long term (current) drug therapy; Z98.41 Cataract extraction status, right eye; Z98.42 Cataract extraction status, left eye; Z90.710 Acquired absence of both cervix and uterus; Z87.440 Personal history of urinary (tract) infections; Z98.890 Other specified postprocedural states; Z86.2 Personal history of diseases of the blood and blood-forming organs and certain disorders involving the immune mechanism; W01.0XXA Fall on same level from slipping, tripping and stumbling without subsequent striking against object, initial encounter; Y93.89 Activity, other specified; Y92.89 Other specified places as the place of occurrence of the external cause; Y99.8 Other external cause status
CPT/HCPCS: 25609; 25652; 73100; C1713; J0690; J1100; J1170; J2250; J2405; J2704; J7120; U0003; A6250

== ENCOUNTER 2020-02-14 13:30 | Outpatient (CLI) | payer MEDICARE ==
--- NOTE | 2020-02-14 15:02 | XRay Report ---
HISTORY:UNSPECIFIED FRACTURE COMPARISON: 11/23/2019 TECHNIQUE: AP lateral and obliques views were obtained FINDINGS: Bones: Open reduction internal fixation of a distal radius and distal ulnar fracture Joint spaces: Maintained. Soft tissues: No significant abnormality. Additional findings: None. IMPRESSION: 1. Postoperative changes distal radius and distal Signer Name: Demetri Tidwell MD Signed: 02/14/2020 2:58 PM Workstation Name: [id number]
== END 2020-02-14 13:31 | disposition home or self-care (01) ==
LOC: XRAY 13:30
PROVIDERS: ATTEND Orthopaedic Surgery
DX: S52.602D Unspecified fracture of lower end of left ulna, subsequent encounter for closed fracture with routine healing (principal); S52.502D Unspecified fracture of the lower end of left radius, subsequent encounter for closed fracture with routine healing; X58.XXXD Exposure to other specified factors, subsequent encounter

== ENCOUNTER 2020-03-03 21:10 | Emergency (ER) | payer MEDICARE ==
--- NOTE | 2020-03-03 22:10 | Event Note ---
ED Screening Note Date of service: 03/03/20 Time: 22:08 ED Screening Note: 74-year-old Frisian female comes in complaining of elevated blood pressure and fast heart rate. Patient states that she had a Covid test today and now is having body aches and elevated heart rate. Patient does have a past medical history of hypertension and is currently on medication but does not know the name of it. Patient denies any fever but does have chills. This initial assessment/diagnostic orders/clinical plan/treatment(s) is/are subject to change based on patients health status, clinical progression and re- assessment by fellow clinical providers in the ED. Further treatment and workup at subsequent clinical providers discretion. Patient/guardian urged not to elope from the ED as their condition may be serious if not clinically assessed and managed. Initial orders include:
[2020-03-03 23:00] LABS: Basophils % (Auto) 0.6 % (0.0-1.8); Eosinophils # (Auto) 0.1 K/mm3 (0.0-0.4); Eosinophils % (Auto) 0.9 % (0.0-4.3); Hematocrit 35.3 % (30.3-42.9); Lymphocytes # (Auto) 1.6 K/mm3 (1.2-5.4); Lymphocytes % (Auto) 24.4 % (13.4-35.0); Mean Corpuscular HGB Conc 34 % (30-34); Mean Corpuscular Volume 96 fl (79-97); Monocytes # (Auto) 0.8 K/mm3 (0.0-0.8); Monocytes % (Auto) 11.9 % (0.0-7.3); Platelet Count 240 K/mm3 (140-440); Red Blood Count 3.67 M/mm3 (3.65-5.03); Red Cell Distribution Width 12.1 % (13.2-15.2)
[2020-03-03 23:17] LABS: Alanine Aminotransferase 13 units/L (7-56); Albumin 4.5 g/dL (3.9-5); Blood Urea Nitrogen 13 mg/dL (7-17); Calcium 9.3 mg/dL (8.4-10.2); Hemolysis Index 3
[2020-03-03 23:29] LABS: BUN/Creatinine Ratio 22
--- NOTE | 2020-03-04 00:11 | Emergency Department Report ---
ED General Adult HPI - General Chief complaint: High BP Stated complaint: GENERAL WEAKNESS/HIGH BP Time Seen by Provider: 03/03/20 23:52 Source: patient Mode of arrival: Ambulatory Limitations: Language Barrier - History of Present Illness Initial comments: Patient is 74 years old female, [place]ian, translation through her son. Patient presented to the ER stating that her blood pressure is high. Son stated that her blood pressure was 180/100, he stated that she drinks lemon and that helped her blood pressure to go down. He also stated that she felt like she has a heart rate that is fast. Patient had her COVID-19 vaccine today and is still having body ache and chills. Patient denied any shortness of breath, chest pain, nausea or vomiting. No abdominal pain. - Related Data Home Medications Medication Instructions Recorded Confirmed Last Taken Esomeprazole Magnesium 40 mg PO DAILY 12/03/19 12/06/19 12/05/19 09:30 Hydroxychloroquine [Plaquenil] 200 mg PO DAILY 12/03/19 12/06/19 12/05/19 12:00 Lisinopril 5 mg PO PRN 12/03/19 12/03/19 12/05/19 19:00 Synthroid 50 mcg PO DAILY 12/03/19 12/06/19 12/05/19 08:00 Previous Rx's Medication Instructions Recorded Last Taken Type oxyCODONE /ACETAMINOPHEN [Percocet 1 tab PO Q6HR PRN #30 tablet 12/06/19 Unknown Rx 5/325] Allergies Allergy/AdvReac Type Severity Reaction Status Date / Time No Known Allergies Allergy Unverified 08/22/18 09:12 ED Review of Systems ROS: Stated complaint: GENERAL WEAKNESS/HIGH BP Other details as noted in HPI Comment: All other systems reviewed and negative Constitutional: denies: chills, fever Respiratory: denies: cough, shortness of breath, SOB with exertion Cardiovascular: palpitations. denies: chest pain Gastrointestinal: denies: abdominal pain, nausea, vomiting, diarrhea, constipation, hematemesis, melena, hematochezia Musculoskeletal: arthralgia, myalgia. denies: back pain Neurological: denies: headache, weakness, numbness, paresthesias, confusion ED Past Medical Hx - Past Medical History Previous Medical History?: Yes Hx Hypertension: Yes (MEDS PRN) Hx Heart Attack/AMI: No Hx Congestive Heart Failure: No Hx Diabetes: No Hx GERD: Yes Hx Liver Disease: No Hx Sickle Cell Disease: No Hx Headaches / Migraines: Yes Hx Seizures: No Hx Kidney Stones: No Hx Asthma: No Hx COPD: No Hx Tuberculosis: No Hx HIV: No Additional medical history: Lupus - Surgical History Past Surgical History?: Yes Hx Coronary Stent: No Hx Pacemaker: No Hx Internal Defibrillator: No Additional Surgical History: Ovaries removed. left arm. - Social History Smoking Status: Never Smoker Substance Use Type: None - Medications Home Medications: Home Medications Medication Instructions Recorded Confirmed Last Taken Type Esomeprazole Magnesium 40 mg PO DAILY 12/03/19 12/06/19 12/05/19 09:30 History Hydroxychloroquine [Plaquenil] 200 mg PO DAILY 12/03/19 12/06/19 12/05/19 12:00 History Lisinopril 5 mg PO PRN 12/03/19 12/03/19 12/05/19 19:00 History Synthroid 50 mcg PO DAILY 12/03/19 12/06/19 12/05/19 08:00 History oxyCODONE /ACETAMINOPHEN [Percocet 1 tab PO Q6HR PRN #30 tablet 12/06/19 Unknown Rx 5/325] ED Physical Exam - General Limitations: Language Barrier General appearance: alert, in no apparent distress - Head Head exam: Present: atraumatic, normocephalic, normal inspection - Eye Eye exam: Present: normal appearance, PERRL - ENT ENT exam: Present: normal exam, normal orophraynx, mucous membranes moist - Neck Neck exam: Present: normal inspection, full ROM. Absent: tenderness, meningismus - Respiratory Respiratory exam: Present: normal lung sounds bilaterally - Cardiovascular Cardiovascular Exam: Present: regular rate, normal rhythm, normal heart sounds - GI/Abdominal GI/Abdominal exam: Present: soft, normal bowel sounds. Absent: distended, tenderness, guarding, rebound, rigid, organomegaly, mass, bruit, pulsatile mass, hernia - Extremities Exam Extremities exam: Present: normal inspection, full ROM, normal capillary refill. Absent: tenderness - Back Exam Back exam: Present: normal inspection, full ROM. Absent: CVA tenderness (R), CVA tenderness (L) - Neurological Exam Neurological exam: Present: alert, oriented X3, CN II-XII intact - Psychiatric Psychiatric exam: Present: normal mood - Skin Skin exam: Present: warm, intact, normal color ED Course Vital Signs 03/03/20 03/04/20 03/04/20 22:03 00:23 00:28 Temperature 97.6 F Pulse Rate 98 H 86 Respiratory 17 14 Rate Blood Pressure 165/94 Blood Pressure 145/83 [Right] O2 Sat by Pulse 97 100 100 Oximetry ED Medical Decision Making - Lab Data Result diagrams: 03/03/20 22:27 03/03/20 22:27 - EKG Data -: EKG Interpreted by Me EKG shows normal: sinus rhythm Rate: normal - Medical Decision Making Patient is 74 years old female, [place]ian, translation through her son. Patient presented to the ER stating that her blood pressure is high. Son stated that her blood pressure was 180/100, he stated that she drinks lemon and that helped her blood pressure to go down. He also stated that she felt like she has a heart rate that is fast. Patient had her COVID-19 vaccine today and is still having body ache and chills. Patient denied any shortness of breath, chest pain, nausea or vomiting. No abdominal pain. EKG is unremarkable with a heart rate of 84. Labs reviewed and is unremarkable. Patient blood pressure came down to 145/83 with no medication. Patient advised to follow-up with her primary care physician in the next 2 to 3 days and to return to the ER if she develop any new symptoms. Critical care attestation.: If time is entered above; I have spent that time in minutes in the direct care of this critically ill patient, excluding procedure time. ED Disposition Clinical Impression: Palpitation, Malignant hypertension Disposition: - TO HOME OR SELFCARE Is pt being admited?: No Condition: Stable Instructions: Hypertension (ED), Palpitations, [id number], Hypertension, Adult, [id number] Referrals: PRIMARY CARE,MD [Primary Care Provider] - 3-5 Days
[2020-03-04 00:28] VITALS: BP 145/83
== END 2020-03-04 00:52 | disposition home or self-care (01) ==
LOC: ED 21:10
DX: R00.2 Palpitations (principal); I10 Essential (primary) hypertension; K21.9 Gastro-esophageal reflux disease without esophagitis; G43.909 Migraine, unspecified, not intractable, without status migrainosus; Z98.890 Other specified postprocedural states; Z79.899 Other long term (current) drug therapy
CPT/HCPCS: 36415; 80053; 85025; 93005

== ENCOUNTER 2020-08-28 01:30 | Emergency (ER) | payer MEDICARE ==
--- NOTE | 2020-08-28 01:51 | Emergency Department Report ---
ED General Adult HPI - General Chief complaint: High BP Stated complaint: HYPERTENSION PUI?: No Time Seen by Provider: 08/28/20 01:43 Source: patient, family Mode of arrival: Ambulatory Limitations: Language Barrier - History of Present Illness Initial comments: Patient is a 74-year-old female that presents emergency room for fatigue and elevated blood pressure. Patient's blood pressure was greater than 200/110 at home. Patient is compliant with her medications. Patient takes lisinopril 5 mg in the morning and 10 mg before bedtime. Patient is taking all of her medication as prescribed. Patient states she has felt fatigued today. Patient states her symptoms started about 3 hours prior to arrival. Patient states she took her lisinopril 10 mg just prior to EMS arriving. Patient's current blood pressure is 150/80. Patient states she is feeling a little bit better. The son has assisted us with translation due to the patient's language barrier. Patient denies chest pain shortness of breath. Patient denies fever and chills. Patient denies recent travel. Patient denies recent international travel. Patient denies exposure to the novel coronavirus. Patient denies sick contacts. Patient denies fever and chills. Patient denies cough. Patient denies diarrhea. Patient denies coming in contact with anybody with symptoms of the novel coronavirus. -: Sudden Consistency: constant Improves with: rest Worsens with: movement Associated Symptoms: malaise. denies: confusion, chest pain, cough, diaphoresis, fever/chills, headaches, loss of appetite, nausea/vomiting, rash, seizure, shortness of breath, syncope, weakness - Related Data Home Medications Medication Instructions Recorded Confirmed Last Taken Esomeprazole Magnesium 40 mg PO DAILY 12/03/19 08/28/20 12/05/19 09:30 Hydroxychloroquine [Plaquenil] 200 mg PO DAILY 12/03/19 08/28/20 12/05/19 12:00 Lisinopril 5 mg PO BID 12/03/19 12/03/19 12/05/19 19:00 Synthroid 50 mcg PO DAILY 12/03/19 08/28/20 12/05/19 08:00 Allergies Allergy/AdvReac Type Severity Reaction Status Date / Time No Known Allergies Allergy Unverified 08/22/18 09:12 ED Review of Systems ROS: Stated complaint: HYPERTENSION Other details as noted in HPI Constitutional: malaise. denies: chills, fever Eyes: denies: eye pain, eye discharge, vision change ENT: denies: ear pain, throat pain Respiratory: denies: cough, shortness of breath, wheezing Cardiovascular: denies: chest pain, palpitations Endocrine: no symptoms reported Gastrointestinal: denies: abdominal pain, nausea, diarrhea Genitourinary: denies: urgency, dysuria, discharge Musculoskeletal: denies: back pain, joint swelling, arthralgia Skin: denies: rash, lesions Neurological: denies: headache, weakness, paresthesias Psychiatric: denies: anxiety, depression Hematological/Lymphatic: denies: easy bleeding, easy bruising ED Past Medical Hx - Past Medical History Previous Medical History?: Yes Hx Hypertension: Yes (MEDS PRN) Hx Heart Attack/AMI: No Hx Congestive Heart Failure: No Hx Diabetes: No Hx GERD: Yes Hx Liver Disease: No Hx Sickle Cell Disease: No Hx Headaches / Migraines: Yes Hx Seizures: No Hx Kidney Stones: No Hx Asthma: No Hx COPD: No Hx Tuberculosis: No Hx HIV: No Additional medical history: Lupus - Surgical History Past Surgical History?: Yes Hx Coronary Stent: No Hx Pacemaker: No Hx Internal Defibrillator: No Additional Surgical History: Ovaries removed. left arm. - Family History Family history: no significant - Social History Smoking Status: Never Smoker Substance Use Type: None - Medications Home Medications: Home Medications Medication Instructions Recorded Confirmed Last Taken Type Esomeprazole Magnesium 40 mg PO DAILY 12/03/19 08/28/20 12/05/19 09:30 History Hydroxychloroquine [Plaquenil] 200 mg PO DAILY 12/03/19 08/28/20 12/05/19 12:00 History Lisinopril 5 mg PO BID 12/03/19 12/03/19 12/05/19 19:00 History Synthroid 50 mcg PO DAILY 12/03/19 08/28/20 12/05/19 08:00 History ED Physical Exam - General Limitations: Language Barrier General appearance: alert, in no apparent distress - Head Head exam: Present: atraumatic, normocephalic - Eye Eye exam: Present: normal appearance - ENT ENT exam: Present: mucous membranes moist - Neck Neck exam: Present: normal inspection - Respiratory Respiratory exam: Present: normal lung sounds bilaterally. Absent: respiratory distress, wheezes, rales - Cardiovascular Cardiovascular Exam: Present: regular rate, normal rhythm. Absent: systolic murmur, diastolic murmur, rubs, gallop - GI/Abdominal GI/Abdominal exam: Present: soft, normal bowel sounds. Absent: distended, tenderness, guarding - Extremities Exam Extremities exam: Present: normal inspection - Back Exam Back exam: Present: normal inspection - Neurological Exam Neurological exam: Present: alert, oriented X3 - Psychiatric Psychiatric exam: Present: normal affect, normal mood - Skin Skin exam: Present: warm, dry, intact, normal color. Absent: rash ED Course Vital Signs 08/28/20 08/28/20 08/28/20 01:30 01:44 02:00 Temperature 98.8 F Pulse Rate 95 H 95 H Respiratory 15 11 L Rate Blood Pressure 150/92 150/92 150/92 O2 Sat by Pulse 100 100 Oximetry 08/28/20 08/28/20 02:30 03:00 Temperature Pulse Rate 94 H Respiratory 20 Rate Blood Pressure 143/84 146/88 O2 Sat by Pulse 100 Oximetry - Reevaluation(s) Reevaluation #1: Patient blood pressure has been stable. I discussed all results and clinical findings with patient. I discussed plan of care with patient. Patient agrees with plan of care. Patient is stable for discharge. Patient will be discharged home. Patient given discharge instructions. Patient voiced understanding of discharge instructions. 08/28/20 03:48 ED Medical Decision Making - Lab Data Result diagrams: 08/28/20 01:59 08/28/20 01:59 - EKG Data -: EKG Interpreted by Me EKG shows normal: sinus rhythm, axis, intervals, QRS complexes, ST-T waves Rate: tachycardia - Medical Decision Making Patient is a 74-year-old female who presents emergency room with complaints of fatigue and elevated blood pressure. Patient took her nighttime lisinopril just prior to EMS coming to her house. Patient states her blood pressure improved with treatment. Patient blood pressure essentially controlled upon arrival to the ER. Patient's only other complaint was fatigue. Patient had labs done which were essentially unremarkable. Patient had an EKG done which showed a sinus tach. Patient not have any ST changes. I personally reviewed the EKG. Patient is stable for discharge. Patient does not require any further emergency medical services or inpatient services. Patient is stable for discharge. Patient discharged home. - Differential Diagnosis Hypertension, fatigue, missed medication, hypertensive urgency Critical care attestation.: If time is entered above; I have spent that time in minutes in the direct care of this critically ill patient, excluding procedure time. ED Disposition Clinical Impression: Hyponatremia Hypertension Qualifiers: Hypertension type: primary hypertension Qualified Code(s): I10 - Essential (primary) hypertension Fatigue Qualifiers: Fatigue type: unspecified Qualified Code(s): R53.83 - Other fatigue Disposition: - TO HOME OR SELFCARE Is pt being admited?: No Does the pt Need Aspirin: No Condition: Stable Instructions: Hypertension (ED), Hypertension, Adult, [id number], Managing Your Hypertension Additional Instructions: Patient to follow-up with primary care in 2 to 3 days. Patient to rest. Patient to increase water. Patient to avoid strenuous exercise or heavy lifting until cleared by primary care. Patient to monitor blood pressure at home. Patient to keep a blood pressure log. Patient to take blood pressure log to all follow-up appointments. Patient to eat a low-salt and heart healthy diet. Patient to take Tylenol or ibuprofen as needed for pain. Patient to continue all medications. Patient to return to the ER if condition worsens, changes or new symptoms arise. Referrals: PRIMARY CARE, [Primary Care Provider] - 2-3 Days Time of Disposition: 03:52
[2020-08-28 02:15] LABS: Hematocrit 33.1 % (30.3-42.9); Hemoglobin 11.4 gm/dl (10.1-14.3); Mean Corpuscular HGB Conc 35 % (30-34); Mean Corpuscular Volume 96 fl (79-97); Platelet Count 256 K/mm3 (140-440); Red Blood Count 3.45 M/mm3 (3.65-5.03); Red Cell Distribution Width 12.2 % (13.2-15.2)
[2020-08-28 02:33] LABS: Alanine Aminotransferase 18 units/L (7-56); Albumin 4.6 g/dL (3.9-5); BUN/Creatinine Ratio 17; Blood Urea Nitrogen 12 mg/dL (7-17); Calcium 9.5 mg/dL (8.4-10.2); Hemolysis Index 6
[2020-08-28 04:49] VITALS: BP 125/77
--- NOTE | 2020-08-28 10:51 | Electrocardiograph Report ---
[facility] Test Date: 2020-08-28 Test Time: 02:06:31 Pat Name: CLARISSE RENE Department: Room: Gender: F Medical Imaging Technologist: BRITTANY : 1945 Requested By: MARLENA KAUR III Order Number: [id number] Reading MD: Clay Quispe Measurements Intervals [place] Rate: 102 P: 59 NV: 193 QRS: 64 QRSD: 93 T: 34 QT: 374 QTc: 488 Interpretive Statements Sinus tachycardia No previous ECG available for comparison Electronically Signed On 08-28-2020 10:51:28 EDT by Clay Quispe
== END 2020-08-28 04:50 | disposition home or self-care (01) ==
LOC: ED 01:30
DX: E87.1 Hypo-osmolality and hyponatremia (principal); R53.83 Other fatigue; I10 Essential (primary) hypertension; K21.9 Gastro-esophageal reflux disease without esophagitis; G43.909 Migraine, unspecified, not intractable, without status migrainosus; Z98.890 Other specified postprocedural states; Z79.899 Other long term (current) drug therapy
CPT/HCPCS: 36415; 80053; 85027; 93005

== ENCOUNTER 2020-09-09 16:03 | Outpatient (CLI) | payer MEDICARE ==
--- NOTE | 2020-09-09 18:06 | XRay Report ---
LEFT WRIST 3 VIEW(S) INDICATION / CLINICAL INFORMATION: UNSPECIFIED FRACTURE OF LOWER END OF LT RADIUS COMPARISON: February 13, 2021 FINDINGS: BONES / JOINT(S): No acute fracture or subluxation. No significant arthritis. Patient is status post plate screw fixation of the distal radius and distal ulna. The hardware is without complication. SOFT TISSUES: No significant abnormality. ADDITIONAL FINDINGS: None. Signer Name: Jonathan De Luna DO Signed: 09/09/2020 6:02 PM Workstation Name: [id number]
== END 2020-09-09 16:04 | disposition home or self-care (01) ==
LOC: XRAY 16:03
PROVIDERS: ATTEND Orthopaedic Surgery
DX: S52.502A Unspecified fracture of the lower end of left radius, initial encounter for closed fracture (principal); Z47.2 Encounter for removal of internal fixation device; X58.XXXA Exposure to other specified factors, initial encounter; Y93.89 Activity, other specified; Y92.89 Other specified places as the place of occurrence of the external cause; Y99.8 Other external cause status